=== PATIENT | female | born 1945 | race Hispanic/Latino ===

== ENCOUNTER → 2018-03-03 | Outpatient (CLI) | payer OTHER, MEDICARE | END | disposition home or self-care (01) | LOC: RAH 15:33 | PROVIDERS: ATTEND Internal Medicine | DX: M48.56XA Collapsed vertebra, not elsewhere classified, lumbar region, initial encounter for fracture (principal); M16.10 Unilateral primary osteoarthritis, unspecified hip; M47.896 Other spondylosis, lumbar region | CPT/HCPCS: 72170; 72220 ==

== ENCOUNTER → 2020-01-04 | Outpatient (CLI) | payer OTHER, MEDICARE | END | disposition home or self-care (01) | LOC: RAH 11:41 | PROVIDERS: ATTEND Internal Medicine | DX: M19.071 Primary osteoarthritis, right ankle and foot (principal); M77.31 Calcaneal spur, right foot; M79.671 Pain in right foot; M25.571 Pain in right ankle and joints of right foot | CPT/HCPCS: 73610; 73630 ==

== ENCOUNTER → 2020-04-12 | Outpatient (CLI) | payer OTHER, MEDICARE | END | disposition home or self-care (01) | LOC: RAH 12:18 | PROVIDERS: ATTEND Nurse Practitioner Family | DX: M47.814 Spondylosis without myelopathy or radiculopathy, thoracic region (principal); M41.84 Other forms of scoliosis, thoracic region; M25.78 Osteophyte, vertebrae | CPT/HCPCS: 72072 ==

== ENCOUNTER → 2023-03-17 | Outpatient (CLI) | payer OTHER | END | disposition home or self-care (01) | LOC: RAH 13:52 | PROVIDERS: ATTEND Internal Medicine | DX: M25.711 Osteophyte, right shoulder (principal); M25.511 Pain in right shoulder; M19.011 Primary osteoarthritis, right shoulder | CPT/HCPCS: 73030 ==

== ENCOUNTER → 2023-09-11 | Outpatient (CLI) | payer MEDICARE, OTHER | END | disposition home or self-care (01) | LOC: RAH 16:10 | PROVIDERS: ATTEND Internal Medicine | DX: J98.4 Other disorders of lung (principal); J06.9 Acute upper respiratory infection, unspecified; M47.815 Spondylosis without myelopathy or radiculopathy, thoracolumbar region | CPT/HCPCS: 71046 ==

== ENCOUNTER → 2024-08-17 | Outpatient (CLI) | payer OTHER, MEDICARE ==
--- NOTE | 2024-08-17 10:47 | HMCIMG ---
ULTRASOUND ABDOMEN COMPLETE INDICATION: Unspecified jaundice COMPARISON: None. FINDINGS: Examination is limited secondary to extensive overlying bowel gas as per the hedis abstractor notes. The liver is normal in size and echogenicity; no focal lesion demonstrated. Main portal vein is patent, and normal direction of vascular flow demonstrated. The common bile duct caliber measures 3.0 mm. Gallbladder is surgically absent. The spleen is normal in size and echotexture. The spleen measures 8.5 cm. Visible portions of the pancreas appear unremarkable. The right kidney measures 8.2 x 4.4 x 5.0 cm,and is normal in echogenicity, without evidence for hydronephrosis or shadowing stones. The left kidney measures 9.4 x 4.1 x 4.2 cm,and is normal in echogenicity, without evidence for hydronephrosis or shadowing stones. Visible portions of the abdominal aorta are within normal limits. Visible portions of the inferior vena cava are within normal limits. No free fluid demonstrated. IMPRESSION: Limitations as reported. No acute upper abdominal abnormality identified.
== END | disposition home or self-care (01) ==
LOC: RAH 08:15
PROVIDERS: ATTEND Internal Medicine
DX: R17 Unspecified jaundice (principal); Z90.49 Acquired absence of other specified parts of digestive tract
CPT/HCPCS: 76700